=== PATIENT | male | born 1960 | race African-American/Black ===

== ENCOUNTER 2016-11-28 09:02 | Day surgery (SDC) | payer BC ==
[2016-11-23 16:41] VITALS: BMI 30.5
[2016-11-28] MEDS: CYCLOPENTOLATE HCL 1% OPHTH SOLN 2 ML BOTTLE ONE ×5 (09:30→09:50)
[2016-11-28] MEDS: PHENYLEPHRINE 2.5% OPHTH SOLN 15 ML BOTTLE ONE ×5 (09:30→09:50)
[2016-11-28] MEDS: TROPICAMIDE 1% OPHTH SOLN 15 ML BOTTLE ONE ×5 (09:30→09:50)
[2016-11-28] MEDS: FLURBIPROFEN 0.03% OPHTH SOLN 2.5 ML BOTTLE ONE ×5 (09:30→09:50)
[2016-11-28] MEDS: GENTAMICIN SULFATE 0.3% OPHTHALMIC (EYE DROPS) 5ML BOTTLE ONE ×5 (09:30→09:50)
[2016-11-28] MEDS ORDERED: MIDAZOLAM HCL 2 MG/2 ML SINGLE DOSE VIAL ONE (10:19)
[2016-11-28] MEDS ORDERED: ONDANSETRON 4 MG/2 ML VIAL ONE (10:25)
[2016-11-28] MEDS ORDERED: CARBACHOL 0.01% INTRA-OCULAR 1.5 ML VIAL ONE (10:29)
[2016-11-28 11:26] VITALS: TEMP 98.7
[2016-11-28 12:14] VITALS: BP 131/80; PULSE 64
[2016-11-28] MEDS ORDERED: ACETAMINOPHEN 325 MG TABLET (FP) PO PRN (12:37)
--- NOTE | 2016-11-28 17:15 | OP ---
DATE OF OPERATION: 11/28/2016 PREOPERATIVE DIAGNOSIS: Cataract, right eye. POSTOPERATIVE DIAGNOSIS: Cataract, right eye. PROCEDURE: Cataract extraction via phacoemulsification with insertion of posterior chamber lens implant, right eye. SURGEON: Yanna Rich MD HR ASSOCIATE: Yanna Rich MD ANESTHESIA: Regional with sedation. COMPLICATIONS: None. SPECIMENS: None. ESTIMATED BLOOD LOSS: Less than 1 mL. DESCRIPTION OF PROCEDURE: The patient was identified in the holding area. After all risks, benefits, and alternatives were explained to the patient, informed consent was obtained. The right eye was marked with a marking pen. The patient entered the operating room on an eye stretcher. After a formal timeout was performed, a 3-mL injection of equal parts 2% lidocaine with epinephrine and 0.5% Marcaine was given around the right eye. The right eye was then prepped and draped in the usual sterile fashion. An eyelid speculum was placed beneath the eyelids of the right eye. A superotemporal paracentesis incision was created using a 15-degree blade. Viscoelastic was injected into the anterior chamber. A 2.4-mm keratome blade was then used to make an inferotemporal incision. A 360-degree, continuous curvilinear capsulorrhexis was then created using bent cystotome and Utrata forceps. Hydrodissection was performed with balanced saline solution on a cannula. Phacoemulsification was introduced to disassemble and remove the nucleus in its entirety. Irrigation/aspiration was then used to remove any remaining cortical material from the eye. The capsular bag was then refilled using Viscoelastic. An Buster model SN60WF with a power of 21.5 diopters, serial number [id number], was inspected and found to be defect free and injected into the capsular bag. Irrigation/aspiration was then used to remove any remaining viscoelastic from the eye. The anterior chamber was then reformed using balanced saline solution. Intracameral injections of Miochol and Miostat were then given to the eye, and the pupil came down, was round. Attempt was made to hydrate all wounds, but the main wound was found to still be leaky; so, 1 interrupted 10-0 nylon suture was then used to close the main wound, and the knot was buried. Upon inspection, the anterior chamber was deep. There was a red reflex present. The eye had an adequate pressure. All wounds were well sealed, and the lens was perfectly centered in the capsular bag. Topical antibiotic eye drops and ointment were then administered to the right eye. The eyelid speculum was removed from the right eye. The right eye was patched and shielded. The patient tolerated the procedure well and left the operating room in stable condition to follow up in the eye clinic tomorrow morning at 9:00. YANNA RICH M.D. [id number]
== END 2016-11-28 11:55 | disposition home or self-care (01) ==
LOC: FASU 09:02
PROVIDERS: ATTEND Ophthalmology
PROC: 08RJ3JZ Replacement of Right Lens with Synthetic Substitute, Percutaneous Approach (ICD-10-PCS; principal; 2016-11-28 10:37)
DX: H26.9 Unspecified cataract (principal)

== ENCOUNTER 2021-03-08 08:57 | Day surgery (SDC) | payer BC ==
[2021-03-02 10:55] VITALS: BMI 35.9
[2021-03-08] MEDS ORDERED: OFLOXACIN 0.3% OPHTHALMIC SOLUTION 5 ML BOTTLE ONE (10:15)
[2021-03-08] MEDS ORDERED: TROPICAMIDE 1% OPHTH SOLN 15 ML BOTTLE ONE (10:15)
[2021-03-08] MEDS ORDERED: KETOROLAC TROMETHAMINE 0.5% EYE DROP 1 DROP DROPS ONE (10:15)
[2021-03-08] MEDS ORDERED: PHENYLEPHRINE 2.5% OPHTH SOLN 15 ML BOTTLE ONE (10:15)
[2021-03-08] MEDS ORDERED: CYCLOPENTOLATE HCL 1% OPHTH SOLN 2 ML BOTTLE ONE (10:15)
[2021-03-08] MEDS: OFLOXACIN 0.3% OPHTHALMIC SOLUTION 5 ML BOTTLE OS SCH ×3 (10:35→10:45)
[2021-03-08] MEDS: KETOROLAC TROMETHAMINE 0.5% EYE DROP 1 DROP DROPS OS SCH ×3 (10:35→10:45)
[2021-03-08] MEDS: PHENYLEPHRINE 2.5% OPHTH SOLN 15 ML BOTTLE OS SCH ×3 (10:35→10:45)
[2021-03-08] MEDS: TROPICAMIDE 1% OPHTH SOLN 15 ML BOTTLE OS SCH ×3 (10:35→10:45)
[2021-03-08] MEDS: CYCLOPENTOLATE HCL 1% OPHTH SOLN 2 ML BOTTLE OS SCH ×3 (10:35→10:45)
[2021-03-08] MEDS ORDERED: KETOROLAC TROMETHAMINE 30 MG/1 ML VIAL ONE (11:53)
[2021-03-08] MEDS ORDERED: MIDAZOLAM HCL 2 MG/2 ML SINGLE DOSE VIAL ONE ×3 (11:54→12:23)
[2021-03-08] MEDS ORDERED: BACITRACIN/POLYMYXIN OPH OINT 3.5 GM TUBE ONE (12:01)
[2021-03-08] MEDS ORDERED: POVIDONE-IODINE 5% OPHTHALMIC PREP 30 ML SOLUTION ONE (12:01)
[2021-03-08] MEDS ORDERED: ACETAMINOPHEN 325 MG TABLET (FP) PO PRN (12:01)
[2021-03-08] MEDS ORDERED: EPI-SHUGARCAINE (EPINEPHRINE 0.025% & LIDOCAINE-PF 0.75%) 4ML ONE (12:01)
[2021-03-08] MEDS ORDERED: BETAXOLOL HCL 0.25% OPHTHALMIC 10 ML DROPSBTL ONE (12:01)
[2021-03-08] MEDS ORDERED: TETRACAINE 0.5% OPHTH SOLN 2 ML BOTTLE ONE (12:01)
[2021-03-08] MEDS ORDERED: ACETYLCHOLINE 1:100 INTRA-OCUL 20 MG/2 ML KIT ONE (12:02)
[2021-03-08] MEDS ORDERED: NEO/POLYMYX B SULF/DEXAMETH OPHTHALMIC 5ML BOTTLE ONE (12:02)
[2021-03-08 13:12] VITALS: TEMP 98.5
[2021-03-08 13:46] VITALS: BP 114/63; PULSE 86
== END 2021-03-08 14:45 | disposition home or self-care (01) ==
LOC: FASU 08:57
PROVIDERS: ATTEND Ophthalmology
PROC: 08RK3JZ Replacement of Left Lens with Synthetic Substitute, Percutaneous Approach (ICD-10-PCS; principal; 2021-03-08 12:24)
DX: H26.9 Unspecified cataract (principal)